=== PATIENT | male | born 1970 | race Caucasian/White ===

== ENCOUNTER 2024-12-21 17:21 | Emergency (ER) | payer MEDICAID ==
[2024-12-21] MEDS: Dexamethasone 4 MG/ML SDV PO ONE (19:05)
== END 2024-12-21 19:10 | disposition home or self-care (01) ==
LOC: JP.ED 17:21
DX: L23.7 Allergic contact dermatitis due to plants, except food (principal); B00.1 Herpesviral vesicular dermatitis; Z88.5 Allergy status to narcotic agent; Z88.8 Allergy status to other drugs, medicaments and biological substances; Z79.899 Other long term (current) drug therapy
CPT/HCPCS: 99282; A9270; J1100